=== PATIENT | female | born 1990 | race Caucasian/White ===

== ENCOUNTER 2021-05-18 01:28 | Emergency (ER) | payer OTHER ==
[2021-05-18 01:49] VITALS: RESP 16; TEMP 98
[2021-05-18] MEDS ORDERED: LIDOCAINE/EPINEPHR/TETRACAINE 5 ML BOTTLE TOPICAL ONE (02:04)
[2021-05-18] MEDS ORDERED: DIPH,PERTUS(ACELL)TETVAC-LF 0.5 ML VIAL IM ONE (02:06)
--- NOTE | 2021-05-18 02:29 | ED ---
General Adult HPI - General Chief complaint: Headache Stated complaint: Facial laceration Time Seen by Provider: 05/18/21 01:51 Source: patient Mode of arrival: ambulatory Limitations: no limitations - History of Present Illness Initial comments: 30-year-old female presents to the emergency department with a chief complaint of a laceration. Patient reports she had a few drinks and then attempted to get into her friend's vehicle when she hit the left supraorbital region on the edge of the car. She reports a laceration to the region. Patient denies any loss of consciousness. Denies any blood thinners. Tetanus not up-to-date. Reports no visual changes or any pain with extraocular movements. - Related Data Allergies Allergy/AdvReac Type Severity Reaction Status Date / Time No Known Allergies Allergy Verified 05/18/21 01:49 Review of Systems ROS Statement: Those systems with pertinent positive or pertinent negative responses have been documented in the HPI. ROS Other: All systems not noted in ROS Statement are negative. Past Medical History Past Medical History: No Reported History History of Any Multi-Drug Resistant Organisms: None Reported Past Surgical History: No Surgical Hx Reported Past Psychological History: No Psychological Hx Reported Smoking Status: Current every day smoker Past Alcohol Use History: Occasional Past Drug Use History: None Reported General Exam Limitations: no limitations General appearance: alert, in no apparent distress Head exam: Present: atraumatic, normocephalic, normal inspection. Absent: other (Negative Isabel sign, raccoon eyes, and temperature.) Eye exam: Present: normal appearance, PERRL, EOMI, periorbital swelling (Left). Absent: other (Small laceration of the left supraorbital region. Mild periorbital ecchymosis.) Pupils: Present: normal accommodation ENT exam: Present: normal exam, normal oropharynx, mucous membranes moist Neck exam: Present: normal inspection, full ROM. Absent: tenderness Respiratory exam: Present: normal lung sounds bilaterally. Absent: respiratory distress, wheezes, rales, rhonchi Extremities exam: Present: normal inspection, full ROM, normal capillary refill. Absent: tenderness Back exam: Present: normal inspection, full ROM. Absent: tenderness Neurological exam: Present: alert, oriented X3 Psychiatric exam: Present: normal affect, normal mood Skin exam: Present: warm, dry, intact, normal color Course Vital Signs 05/18/21 05/18/21 01:41 02:04 Temperature 98.0 F Pulse Rate 104 H 92 Respiratory 16 16 Rate Blood Pressure 161/109 141/100 O2 Sat by Pulse 97 98 Oximetry Procedures - Laceration Laceration #1 Consent Obtained: verbal consent Indication: laceration Site: face Size (cm): 1 Description: linear, clean Depth: simple, single layer Sedation/Analgesia: none Anesthetic Used: lidocaine 1% Type of Sutures: nylon Size of Sutures: 4-0 Number of Sutures: 2 Technique: simple, interrupted Patient Tolerated Procedure: well, no complications Medical Decision Making - Medical Decision Making 30-year-old female presents to the emergency department with a chief complaint laceration. On physical examination, left superolateral laceration, superficial approximately 1 cm in length. This was thoroughly irrigated and repaired with 2 sutures. Patient started procedure well. Advised to return in 5-7 days for suture removal. Return parameters discussed the patient is an attending agreeable. Case discussed with Disposition Clinical Impression: Laceration Disposition: HOME SELF-CARE Condition: Stable Instructions (If sedation given, give patient instructions): Laceration (DC), Care For Your Stitches (DC) Additional Instructions: Please return to the emergency room in 5- 7 days to have sutures removed. Please watch for any signs of infection which may include increased pain, swelling, redness, fever or chills. Please return to emergency room for any signs of infection do occur. Please use clean soap and water over the area to prevent scabbing over your stitches. Please leave wound covered for the first 24-48 hours and then leave wound open to air. Please return to the emergency room for any other concerns. Is patient prescribed a controlled substance at d/c from ED?: No Referrals: Luke James MD [Primary Care Provider] - 1-2 days Time of Disposition: 02:42
[2021-05-18 02:55] VITALS: BP 130/96; PULSE 98
== END 2021-05-18 02:55 | disposition home or self-care (01) ==
LOC: EC 01:28
DX: S01.81XA Laceration without foreign body of other part of head, initial encounter (principal); Z23 Encounter for immunization; F17.200 Nicotine dependence, unspecified, uncomplicated; W22.8XXA Striking against or struck by other objects, initial encounter
CPT/HCPCS: 12011; 90471; 90715; 99283